=== PATIENT | male | born 1950 | race Caucasian/White ===

== ENCOUNTER 2019-07-04 17:13 | Observation (INO) ==
[2019-07-04] MEDS ORDERED: Isovue-370 500 ML BOTTLE IVP ONE (17:17)
[2019-07-04] MEDS ORDERED: Ondansetron 4 MG/2 ML VIAL IVP ONE (17:18)
--- NOTE | 2019-07-04 17:19 | Emergency Department Note ---
Disposition Clinical Impression: Elevated troponin Chest pain Qualifiers: Chest pain type: unspecified Qualified Code(s): R07.9 - Chest pain, unspecified Back pain Qualifiers: Back pain location: back pain in unspecified location Chronicity: unspecified Back pain laterality: unspecified Qualified Code(s): M54.9 - Dorsalgia, unspecified Disposition: Admitted As Inpatient Time of Disposition: 20:15 General Adult HPI - General Chief complaint: ED Abdominal Pain Stated complaint: back pain/ vomiting Time Seen by Provider: 07/04/19 17:15 Source: patient, EMS Mode of arrival: EMS Limitations: no limitations Nursing Notes Reviewed: Yes Vital Signs Reviewed: Yes - History of Present Illness HPI Narrative: Patient is a 68-year-old male with past medical history including hypertension, hyperlipidemia, pulmonary embolism on Coumadin, presenting with chief complaint of back pain and chest pain that started at 2:30 PM. The patient states he was sitting at the computer when he suddenly developed mid thoracic back pain that is sharp and radiating into his left chest. He states he felt short of breath. He has nausea and has had several episodes of nonbilious nonbloody emesis. He states this feels similar to when he was diagnosed 2 years ago with his pulmonary embolism. He states his compliance with his Coumadin. Patient states symptoms are getting worse so he called EMS to bring him here. Denies history of aneurysms. Denies abdominal pain. - Related Data Home Medications Medication Instructions Recorded Confirmed Albuterol Sulfate [Proair Hfa] 2 puff IH Q6H PRN 08/31/17 08/30/18 Lisinopril [Zestril] 20 mg PO BID 08/31/17 08/30/18 Omeprazole [PriLOSEC] 40 mg PO BID 08/31/17 08/30/18 Pravastatin Sodium [Pravachol] 80 mg PO HS 08/31/17 08/30/18 Subcutaneous Insulin Pump [T:Slim] 133 unit MC AD 08/31/17 08/30/18 Terbinafine HCl [Lamisil] 250 mg PO AD 08/31/17 08/30/18 Fluticasone Propionate Nasal 50 mcg NS DAILY PRN 09/30/17 08/30/18 [Flonase] Warfarin [Coumadin] 2.5 mg PO DAILY 09/30/17 08/30/18 amLODIPine [Norvasc] 5 mg PO DAILY 09/30/17 08/30/18 Fexofenadine/Pseudoephedrine 1 each PO DAILY 02/22/18 08/30/18 [Rosalind-D 24 Hour Tablet] Ranitidine HCl [Heartburn Relief] 150 mg PO BID 02/22/18 08/30/18 Furosemide [Lasix] 40 mg PO DAILY 08/30/18 08/30/18 Ipratropium/Albuterol Neb [Duoneb] 3 ml IH Q6HR PRN 08/30/18 08/30/18 Montelukast [Singulair] 10 mg PO DAILY 08/30/18 08/30/18 Allergies Allergy/AdvReac Type Severity Reaction Status Date / Time meperidine [From Demerol] Allergy Vomiting Verified 02/22/18 11:20 sulfamethoxazole Allergy Hives Verified 02/22/18 11:20 [From Bactrim] trimethoprim [From Bactrim] Allergy Hives Verified 02/22/18 11:20 vilazodone [From Viibryd] Allergy Hives Verified 02/22/18 11:20 acetaminophen [From Percocet] AdvReac See Verified 02/22/18 11:20 Comments oxycodone [From Percocet] AdvReac See Verified 02/22/18 11:20 Comments All systems ED: reviewed and negative except as stated. Review of Systems: As Per HPI Constitutional: Denies: fever, chills Cardiovascular: Reports: chest pain Respiratory: Reports: dyspnea. Denies: cough Gastrointestinal: Reports: nausea, vomiting. Denies: abdominal pain, diarrhea Musculoskeletal: Reports: back pain Neurological: Denies: headache, weakness Past Medical History - Past Medical History Attestation: Yes The following information was validated with the patient. Source: patient Medical history: Reports: diabetes, GERD, hyperlipidemia, hypertension, other Psychiatric history: Reports: no psych history - Social History Smoking Status: Former smoker Smokeless Tobacco Status: No Alcohol use: Reports: none Drug use: Reports: none Physical Exam - General Limitations: no limitations General appearance: alert, in no apparent distress - Head Head exam: atraumatic, normocephalic - Eye Eye exam: Present: normal appearance, EOMI - ENT ENT exam: normal exam, normal oropharynx - Neck Neck exam: Present: normal inspection, trachea midline - Chest Chest inspection: Present: normal inspection, symmetric chest wall rise - Respiratory Respiratory exam: Present: normal lung sounds bilaterally. Absent: respiratory distress, wheezes - Cardiovascular Cardiovascular exam: Present: normal rhythm, tachycardia, other (Bilateral radial pulses and dorsalis pedis pulses are equal and palpable) - Abdominal Exam Abdominal exam: Present: soft, Non-Tender. Absent: distention, pulsatile mass - Extremities Exam Extremities exam: Present: normal inspection, normal capillary refill. Absent: pedal edema, calf tenderness - Neurological Exam Neurological exam: Present: alert, oriented X3. Absent: motor sensory deficit - Expanded Neurological Exam Motor strength - LUE: 5/5 Motor strength - RUE: 5/5 Motor strength - LLE: 5/5 Motor strength - RLE: 5/5 - Psychiatric Psychiatric exam: Present: normal affect, normal mood - Skin Skin exam: Present: warm, diaphoresis Course Vital Signs Temperature 98.9 F 07/04/19 17:15 Pulse Rate 102 07/04/19 17:15 Respiratory Rate 23 07/04/19 17:15 Blood Pressure 187/85 07/04/19 17:15 O2 Sat by Pulse Oximetry 96 07/04/19 17:15 Temperature 98.9 F 07/04/19 17:15 Pulse Rate 86 07/04/19 19:56 Respiratory Rate 22 07/04/19 19:56 Blood Pressure 129/69 07/04/19 19:56 O2 Sat by Pulse Oximetry 95 07/04/19 19:56 Oxygen Delivery Oxygen Delivery Room Air Medical Decision Making - [facility] Narrative Medical decision making narrative: The patient is diaphoretic and tachycardic. He is actively vomiting. He states he has the back pain and chest pain. We will give him Zofran for nausea. We will obtain CTA chest to evaluate for pulmonary embolism. His also evaluate for an or aortic dissection. His pulses are equal bilaterally and he has no abdom inal palpable mass. We will also obtain EKG, BMP, PT INR, troponin as well. Fentanyl and zofran will be given. 20:00 Labs and imaging reviewed. Patient's chest and back pain improved. Nausea resolv ed. CT shows no PE or dissection. Troponin mildly elevated. patient will be admitted for ACS workup. Discussed with Dr. Miles who accepts admission. patient stable at this time. - Medical Records Medical records reviewed: Yes I reviewed the patient's medical records. - Lab Data Lab results reviewed: Yes I reviewed the patient's lab results. Result diagrams: 07/04/19 18:48 07/04/19 18:48 Lab Results 07/04/19 07/04/19 07/04/19 Range/Units 17:37 17:37 17:37 WBC (4.3-11.1) K/mcL RBC (4.19-5.50) M/mcL Hgb (12.9-16.9) g/dL Hct (37.5-50.1) % MCV (83.0-100.0) fL MCH (28.0-33.3) pg MCHC (31.6-35.5) g/dL RDW (11.5-14.5) % Plt Count (140-400) K/mcL MPV (9.4-12.4) fL Immature Gran % (0-4) % Seg Neutrophils % % Lymphocytes % % Monocytes % % Eosinophils % % Basophils % % Neutrophils # (1.6-8.9) K/mcL Lymphocytes # (0.6-4.6) K/mcL Monocytes # (0.0-1.3) K/mcL Eosinophils # (0.0-0.6) K/mcL Basophils # (0.0-0.2) K/mcL PT 25.1 H (9.4-12.1) Seconds INR 2.2 APTT 34.9 (26.0-36.0) Seconds Sodium TNP Potassium TNP Chloride TNP Carbon Dioxide TNP BUN TNP Creatinine TNP Est GFR ( Amer) WOOD PLANER Est GFR (Non-Af Amer) WOOD PLANER BUN/Creatinine Ratio WOOD PLANER Glucose TNP Calculated Osmolality WOOD PLANER Calcium TNP Troponin I 0.04 H* (< 0.04) ng/mL Specimen Rejected Clotted 07/04/19 07/04/19 Range/Units 18:48 18:48 WBC 9.2 (4.3-11.1) K/mcL RBC 4.47 (4.19-5.50) M/mcL Hgb 13.6 (12.9-16.9) g/dL Hct 41.5 (37.5-50.1) % MCV 92.8 (83.0-100.0) fL MCH 30.4 (28.0-33.3) pg MCHC 32.8 (31.6-35.5) g/dL RDW 13.4 (11.5-14.5) % Plt Count 223 (140-400) K/mcL MPV 9.6 (9.4-12.4) fL Immature Gran % 0.6 (0-4) % Seg Neutrophils % 70.6 % Lymphocytes % 15.0 % Monocytes % 12.1 % Eosinophils % 1.4 % Basophils % 0.3 % Neutrophils # 6.5 (1.6-8.9) K/mcL Lymphocytes # 1.4 (0.6-4.6) K/mcL Monocytes # 1.1 (0.0-1.3) K/mcL Eosinophils # 0.1 (0.0-0.6) K/mcL Basophils # 0.0 (0.0-0.2) K/mcL PT (9.4-12.1) Seconds INR APTT (26.0-36.0) Seconds Sodium 141 Potassium 4.0 Chloride 110 H Carbon Dioxide 25 BUN 20 Creatinine 1.17 Est GFR ( Amer) > 60 Est GFR (Non-Af Amer) > 60 BUN/Creatinine Ratio 17 Glucose 106 H Calculated Osmolality 295 Calcium 9.0 Troponin I (< 0.04) ng/mL Specimen Rejected - Radiology Data Radiology results reviewed: Yes I reviewed the patient's radiology results. Chest CTA 07/04/19 17:17 IMPRESSION: No evidence of pulmonary embolism or acute pulmonary abnormality. D/ / Brianne Jordan MD / Brianne Jordan MD Interpreting Provider: Brianne Jordan MD - EKG Data EKG #1 EKG attestation: Yes I reviewed and interpreted this EKG. EKG results narrative: EKG obtained at 1716 shows sinus rhythm with heart rate 94, OH interval 233, QRS duration 107, QTC 458, no ST elevation, no ST depression, left axis deviation, compared to old EKG on 08/31/2017 which shows no acute ischemic changes.
--- NOTE | 2019-07-04 17:51 | Emergency Department Note ---
Disposition Clinical Impression: Chest pain Qualifiers: Chest pain type: unspecified Qualified Code(s): R07.9 - Chest pain, unspecified Disposition: Still a Patient Forms: ED Satisfaction Letter, Work/School Release Time of Disposition: 17:51 General Adult HPI - General Chief complaint: ED Abdominal Pain Stated complaint: back pain/ vomiting Time Seen by Provider: 07/04/19 17:15 Source: patient, EMS Mode of arrival: EMS Limitations: no limitations Nursing Notes Reviewed: Yes Vital Signs Reviewed: Yes - History of Present Illness HPI Narrative: Attestation note: Patient was seen with the emergency medicine resident/nurse practitioner/physician fire assistant/transitional resident/medical student: Dr. MARY JUNIOR. I was present for the significant portions of the performance and interpretation of procedures and EKGs. I have personally performed a face to face evaluation on this patient. I have reviewed and agree with history and physical examination patient management and disposition. BRIEFLY: 60-year-old male history of pulmonary embolism by EMS for chest pain in his back IN the computer he says this feels like his prior pulmonary embolism. He is actively vomiting. Patient is neurologically nonfocal. He is on Coumadin. Patient will get a CT scan to gram of the chest to check for PE and check his aorta. For possible aortic dissection. She was neurovascularly intact EKG shows no acute ischemic changes. Disposition pending providing 45 minutes critical care service this patient Pain Scale: 5 - Related Data Home Medications Medication Instructions Recorded Confirmed Albuterol Sulfate [Proair Hfa] 2 puff IH Q6H PRN 08/31/17 08/30/18 Lisinopril [Zestril] 20 mg PO BID 08/31/17 08/30/18 Omeprazole [PriLOSEC] 40 mg PO BID 08/31/17 08/30/18 Pravastatin Sodium [Pravachol] 80 mg PO HS 08/31/17 08/30/18 Subcutaneous Insulin Pump [T:Slim] 133 unit MC AD 08/31/17 08/30/18 Terbinafine HCl [Lamisil] 250 mg PO AD 08/31/17 08/30/18 Fluticasone Propionate Nasal 50 mcg NS DAILY PRN 09/30/17 08/30/18 [Flonase] Warfarin [Coumadin] 2.5 mg PO DAILY 09/30/17 08/30/18 amLODIPine [Norvasc] 5 mg PO DAILY 09/30/17 08/30/18 Fexofenadine/Pseudoephedrine 1 each PO DAILY 02/22/18 08/30/18 [Rosalind-D 24 Hour Tablet] Ranitidine HCl [Heartburn Relief] 150 mg PO BID 02/22/18 08/30/18 Furosemide [Lasix] 40 mg PO DAILY 08/30/18 08/30/18 Ipratropium/Albuterol Neb [Duoneb] 3 ml IH Q6HR PRN 08/30/18 08/30/18 Montelukast [Singulair] 10 mg PO DAILY 08/30/18 08/30/18 Allergies Allergy/AdvReac Type Severity Reaction Status Date / Time meperidine [From Demerol] Allergy Vomiting Verified 02/22/18 11:20 sulfamethoxazole Allergy Hives Verified 02/22/18 11:20 [From Bactrim] trimethoprim [From Bactrim] Allergy Hives Verified 02/22/18 11:20 vilazodone [From Viibryd] Allergy Hives Verified 02/22/18 11:20 acetaminophen [From Percocet] AdvReac See Verified 02/22/18 11:20 Comments oxycodone [From Percocet] AdvReac See Verified 02/22/18 11:20 Comments Past Medical History - Past Medical History Medical history: Reports: diabetes, GERD, hyperlipidemia, hypertension, other Psychiatric history: Reports: no psych history - Social History Smoking Status: Former smoker Smokeless Tobacco Status: No Alcohol use: Reports: none Drug use: Reports: none Physical Exam - General Limitations: no limitations General appearance: alert Course Vital Signs Temperature 98.9 F 07/04/19 17:15 Pulse Rate 102 07/04/19 17:15 Respiratory Rate 07/04/19 17:15 Blood Pressure 187/85 07/04/19 17:15 O2 Sat by Pulse Oximetry 96 07/04/19 17:15 Temperature 98.9 F 07/04/19 17:15 Pulse Rate 102 07/04/19 17:15 Respiratory Rate 07/04/19 17:15 Blood Pressure 187/85 07/04/19 17:15 O2 Sat by Pulse Oximetry 100 07/04/19 17:44 Oxygen Delivery Oxygen Delivery Room Air
[2019-07-04 17:59] LABS: INR 2.2; Prothrombin Time 25.1 Seconds (9.4-12.1)
[2019-07-04 18:02] LABS: Activated Partial Thrombo Time 34.9 Seconds (26.0-36.0)
[2019-07-04 18:22] LABS: Troponin I 0.04 ng/mL (< 0.04)
[2019-07-04] MEDS ORDERED: *HR* FentaNYL (PF) 100 MCG/2 ML VIAL IVP ONE (18:27)
[2019-07-04 19:07] LABS: Basophils % 0.3 %; Eosinophils # 0.1 K/mcL (0.0-0.6); Eosinophils % 1.4 %; Hematocrit 41.5 % (37.5-50.1); Hemoglobin 13.6 g/dL (12.9-16.9); Immature Granulocytes % 0.6 % (0-4); Lymphocytes # 1.4 K/mcL (0.6-4.6); Mean Corpuscular HGB Conc 32.8 g/dL (31.6-35.5); Mean Corpuscular Hemoglobin 30.4 pg (28.0-33.3); Mean Corpuscular Volume 92.8 fL (83.0-100.0); Mean Platelet Volume 9.6 fL (9.4-12.4); Monocytes # 1.1 K/mcL (0.0-1.3); Monocytes % 12.1 %; Neutrophils # 6.5 K/mcL (1.6-8.9); Platelet Count 223 K/mcL (140-400); Red Blood Count 4.47 M/mcL (4.19-5.50); Red Cell Distribution Width 13.4 % (11.5-14.5); Segmented Neutrophils % 70.6 %; White Blood Count 9.2 K/mcL (4.3-11.1)
[2019-07-04 19:15] LABS: BUN/Creatinine Ratio 17 (6-26); Blood Urea Nitrogen 20 mg/dL (8-23); Carbon Dioxide 25 mEq/L (23-29); Chloride 110 mEq/L (98-107); Glucose 106 mg/dL (70-105); Osmolality,Calculated 295 (280-300); Sodium 141 mEq/L (136-145); eGFR For African Americans > 60 (> 60); eGFR For Non-African Americans > 60 (> 60)
[2019-07-05] MEDS ORDERED: Naloxone 0.4 MG/ML INJ IVP PRN (01:25)
[2019-07-05] MEDS ORDERED: Dextrose Gel 15 GM/37.5 ML TUBE PO PRN ×2 (01:28)
[2019-07-05] MEDS ORDERED: *HR* Dextrose 50 % in Water (Syg) 50 ML SYRINGE IVP PRN (01:28)
[2019-07-05] MEDS ORDERED: D5% in Water 1,000 ML IVC PRN (01:28)
[2019-07-05] MEDS ORDERED: *HR* FentaNYL (PF) 100 MCG/2 ML VIAL IVP PRN (01:29)
--- NOTE | 2019-07-05 01:33 | Internal Med History&Physical ---
Date of Encounter: 07/04/19 Time of Encounter: 23:30 Internal Medicine - H&P: HPI Chief complaint: Chest pain/back pain Admitted From: Home Plans for Post Hospital Care: Home History of present illness: Mr. Parry is a 68 year old male with past medical history significant for hypertension, hyperlipidemia, PE, DVT, diabetes, GERD, sleep apnea, and retinopathy who presents for complaints of sudden onset stabbing mid thoracic back pain that later progressed to left-sided chest pressure. Rated pain at 8/10 when at its worst. Pain was associated with diaphoresis, nausea, vomiting. Reports taking aspirin at home without improvement, then came to ER where he received Fentanyl and Zofran which improved his symptoms. Reports his pain is almost identical to when he experienced an extensive PE in August 2017 which also produced right heart strain and was transferred to [facility] and was treated there including catheter directed thrombolysis. He reports being compliant with Coumadin since. ER obtained a CTA of the chest which showed no evidence of pulmonary embolism or acute pulmonary abnormality. ER reported EKG as sinus rhythm with no ST elevation, no ST depression, left axis deviation, and no acute ischemic changes when compared to EKG from August 2017. Patient continues to report improvement in his symptoms at time of my examination. Currently denies any headache, shortness of breath, abdominal pain, nausea, bowel or bladder changes. Patient had an echocardiogram completed in August 2018 showing a 60% EF. Denies any previous cardiac stress testing. Reports using a continuous blood glucose monitoring system and insulin pump and his blood sugars have been averaging in the 100s. Follows regularly with his PCP, Railroad Firer, Chair Trimmer, and Ordnance Truck Installation Supervisor. Past Med Surg Social Fam HX - Past Medical History Medical history: DVT, diabetes, GERD, hyperlipidemia, hypertension, pulmonary embolus, other Additional medical history: AAA. Sleep apnea Psychiatric history: no psych history - Past Surgical History Surgical History: appendectomy, orthopedic, other, vasectomy Additional surgical history: Right shoulder surgery. Left elbow surgery - Social History Smoking Status: Former smoker Smokeless Tobacco Status: No Alcohol use: none Drug use: none - Family History Father Hx Family Cardiac Disorders: Yes Mother Hx Family Endocrine Disorder: Yes Internal Medicine - H&P: Meds Lisinopril [Zestril] 20 mg PO BID 08/31/17 [History] Omeprazole [PriLOSEC] 40 mg PO BID 08/31/17 [History] Pravastatin Sodium [Pravachol] 80 mg PO HS 08/31/17 [History] Subcutaneous Insulin Pump [T:Slim] 133 unit MC AD 08/31/17 [History] Terbinafine HCl [Lamisil] 250 mg PO AD 08/31/17 [History] Fluticasone Propionate Nasal [Flonase] 50 mcg NS DAILY PRN 09/30/17 [History] Warfarin [Coumadin] 2.5 mg PO DAILY 09/30/17 [History] amLODIPine [Norvasc] 5 mg PO DAILY 09/30/17 [History] Fexofenadine/Pseudoephedrine [Rosalind-D 24 Hour Tablet] 1 each PO DAILY 02/22/18 [History] Allergy/AdvReac Type Severity Reaction Status Date / Time meperidine [From Demerol] Allergy Vomiting Verified 02/22/18 11:20 sulfamethoxazole Allergy Hives Verified 02/22/18 11:20 [From Bactrim] trimethoprim [From Bactrim] Allergy Hives Verified 02/22/18 11:20 vilazodone [From Viibryd] Allergy Hives Verified 02/22/18 11:20 acetaminophen [From Percocet] AdvReac See Verified 02/22/18 11:20 Comments oxycodone [From Percocet] AdvReac See Verified 02/22/18 11:20 Comments All Systems PM: A 10-system review of systems was performed and is negative for pertinent findings except as documented above in the HPI. - Constitutional Vitals: Temp Pulse Resp BP Pulse Ox 98.7 F 87 17 156/80 94 07/04/19 21:25 07/04/19 21:25 07/04/19 21:25 07/04/19 21:30 07/04/19 21:25 Exam: General: Alert and oriented. Skin:Normal color, no rash, no lesions. HEENT:Pupils equal, round and reactive. Cardiovascular:Heart sounds distant, no rubs, murmurs or gallops. No JVD. Pulse regular. Lungs:Breath sounds decreased, no wheezes or crackles. Abdomen:Soft, non-tender, no rigidity. Extremities:No deformity, tenderness, joint swelling or clubbing. 1+ pitting edema noted to bilateral lower extremities, reports at baseline. Neurological:Normal cognition and motor skills. Pulses:Carotid and radial pulses normal +2. Rest of the physical exam is non contributory. Internal Med - H&P Results - Labs CBC & Chem 7: 07/04/19 18:48 07/04/19 18:48 Labs: Short CBC 07/04/19 Range/Units 18:48 WBC 9.2 (4.3-11.1) K/mcL Hgb 13.6 (12.9-16.9) g/dL Hct 41.5 (37.5-50.1) % Plt Count 223 (140-400) K/mcL Neutrophils # 6.5 (1.6-8.9) K/mcL BMP 07/04/19 07/04/19 17:37 18:48 Sodium TNP 141 Potassium TNP 4.0 Chloride TNP 110 H Carbon Dioxide TNP 25 BUN TNP 20 Creatinine TNP 1.17 Glucose TNP 106 H Calcium TNP 9.0 Cardiac Enzymes 07/04/19 07/04/19 Range/Units 17:37 23:17 Troponin I 0.04 H* 0.03 (< 0.04) ng/mL - Impressions ITS Impressions Chest CTA 07/04/19 17:17 IMPRESSION: No evidence of pulmonary embolism or acute pulmonary abnormality. D/ / Brianne Jordan MD / Brianne Jordan MD Interpreting Provider: Brianne Jordan MD - Assessment and Plan (1) Chest pain Current Visit: Yes Status: Acute Assessment and plan: Presented for sudden onset stabbing mid thoracic back pain that later progressed to left-sided chest pressure. Pain nearly resolved after aspirin and fentanyl. ER obtained CTA of the chest which showed no evidence of pulmonary embolism or acute pulmonary abnormality. Continuous cardiac monitoring. Initial troponin in ER elevated at 0.04, serial troponins ordered. Echocardiogram ordered. Qualifiers: Chest pain type: unspecified Qualified Code(s): R07.9 - Chest pain, unspecified (2) Back pain Current Visit: Yes Status: Acute Assessment and plan: Presented for sudden onset stabbing mid thoracic back pain that later progressed to left-sided chest pressure. Pain nearly resolved after aspirin and fentanyl. Plan as stated above. Qualifiers: Back pain location: back pain in unspecified location Chronicity: unspecified Back pain laterality: unspecified Qualified Code(s): M54.9 - Dorsalgia, unspecified (3) Elevated troponin Current Visit: Yes Status: Acute Assessment and plan: Initial troponin in ER elevated at 0.04, serial troponins ordered. Plan as stated above. (4) History of abdominal aortic aneurysm (AAA) Current Visit: Yes Status: Chronic Assessment and plan: History of AAA, most recent ultrasound in February 2017 showing small infrarenal abdominal aortic aneurysm measuring 2.6 x 3.1cm in the AP and transverse dimensions respectively recommending repeat in 3 years. Due to sudden onset of back pain of unclear etiology will repeat ultrasound to ensure no changes. (5) Sleep apnea Current Visit: Yes Status: Chronic Assessment and plan: Continue CPAP at night. Qualifiers: Sleep apnea type: unspecified type Qualified Code(s): G47.30 - Sleep apnea, unspecified (6) History of pulmonary embolism Current Visit: Yes Status: Resolved Assessment and plan: History of extensive PE in August 2017 which also produced right heart strain and was transferred to [facility] and treated there including catheter directed thrombolysis. Continue coumadin pharmacy to dose. (7) Diabetes mellitus Current Visit: Yes Status: Chronic Assessment and plan: Continous blood glucose monitoring system and insulin pump, continue same. Verify with accuchecks q6 hours. Qualifiers: Diabetes mellitus type: type 1 Qualified Code(s): E10.9 - Type 1 diabetes mellitus without complications (8) Hypertension Current Visit: Yes Status: Chronic Assessment and plan: Continue home medications once verified. Qualifiers: Hypertension type: unspecified Qualified Code(s): I10 - Essential (primary) hypertension - Time Spent With Patient Total time spent is greater than 50% in coordination of care (as documented) at patient's floor/unit and/or counseling patient:
[2019-07-05 06:26] LABS: Basophils % 0.4 %; Eosinophils # 0.2 K/mcL (0.0-0.6); Eosinophils % 2.1 %; Hematocrit 38.1 % (37.5-50.1); Hemoglobin 12.8 g/dL (12.9-16.9); Immature Granulocytes % 0.3 % (0-4); Lymphocytes # 2.2 K/mcL (0.6-4.6); Lymphocytes % 20.7 %; Mean Corpuscular HGB Conc 33.6 g/dL (31.6-35.5); Mean Corpuscular Hemoglobin 30.6 pg (28.0-33.3); Mean Corpuscular Volume 91.1 fL (83.0-100.0); Mean Platelet Volume 10.1 fL (9.4-12.4); Monocytes # 1.5 K/mcL (0.0-1.3); Monocytes % 13.9 %; Neutrophils # 6.6 K/mcL (1.6-8.9); Platelet Count 204 K/mcL (140-400); Red Blood Count 4.18 M/mcL (4.19-5.50); Red Cell Distribution Width 13.2 % (11.5-14.5); Segmented Neutrophils % 62.6 %; White Blood Count 10.6 K/mcL (4.3-11.1)
[2019-07-05 06:34] LABS: INR 2.6
[2019-07-05 06:42] LABS: BUN/Creatinine Ratio 17 (6-26); Blood Urea Nitrogen 20 mg/dL (8-23); Calcium 8.6 mg/dL (8.6-10.3); Carbon Dioxide 28 mEq/L (23-29); Chloride 107 mEq/L (98-107); Glucose 96 mg/dL (70-105); Osmolality,Calculated 296 (280-300); Potassium 3.7 mEq/L (3.5-5.1); Sodium 142 mEq/L (136-145); eGFR For African Americans > 60 (> 60); eGFR For Non-African Americans 60 (> 60)
[2019-07-05] MEDS ORDERED: Regadenoson 0.4 MG/5 ML SYRINGE IVP ONE (10:51)
--- NOTE | 2019-07-05 13:14 | Internal Med Progress Note ---
Hospitalist Progress Note - Encounter Date of Encounter: 07/05/19 Time of Encounter: 10:00 - Subjective Interval History: Mr. Parry is a 68 year old male with past medical history significant for hypertension, hyperlipidemia, PE, DVT, diabetes, GERD, sleep apnea, and retinopathy who presents for complaints of sudden onset stabbing mid thoracic back pain that later progressed to left-sided chest pressure. Rated pain at 8/10 when at its worst. Pain was associated with diaphoresis, nausea, vomiting. Reports taking aspirin at home without improvement, then came to ER where he received Fentanyl and Zofran which improved his symptoms. ER obtained a CTA of the chest which showed no evidence of pulmonary embolism or acute pulmonary abnormality. He was admitted in the hospital and placed him on surveillance monitor. His initial troponin slightly elevated at 0.04, however follow-up troponins were negative. Patient stated he had another episode of chest pain this morning, which lasted for few minutes. - Exam Vitals: Temp Pulse Resp BP Pulse Ox 98.1 F 64 16 114/71 93 07/05/19 07:22 07/05/19 07:22 07/05/19 07:22 07/05/19 07:22 07/05/19 07:22 Exam: Gen: Alert, awake, Oriented to time,place and person Chest: Diminished breath sounds B/L, No wheezing, No crackles, No rales Heart: S1S2+ RRR No murmurs Abd: Soft, NT, BS +, No organomegaly Ext: No edema, pulses are palpable, No calf tenderness Neuro : No acute focal neuro deficits noticed Skin: No rash. - Assessment and Plan (1) Chest pain Current Visit: Yes Status: Acute Assessment and Plan: Troponin were WNL No acute ischemic changes on EKG cont ASA, Nitro PRN, Cont Lisinopril, Statin and Norvasc ordered nuclear stress test since he is high risk for ACS He does need 2 days stress test due to his high BMI (2) Back pain Current Visit: Yes Status: Acute Assessment and Plan: Presented for sudden onset stabbing mid thoracic back pain that later progressed to left-sided chest pressure. r/o PE and disection His aortic US showed Mild distal abdominal aortic aneurysm noted on the prior studies is no longer apparent. (3) Elevated troponin Current Visit: Yes Status: Acute Assessment and Plan: Initial troponin in ER elevated at 0.04, however f/u serial troponins were negative will f/u on stress test (4) Hypertension Current Visit: Yes Status: Chronic Assessment and Plan: Stable blood pressure continue home medications (5) Diabetes mellitus Current Visit: Yes Status: Chronic Assessment and Plan: ADA diet on ISS (6) Sleep apnea Current Visit: Yes Status: Chronic Assessment and Plan: Continue CPAP at night. (7) History of pulmonary embolism Current Visit: Yes Status: Resolved Assessment and Plan: History of extensive PE in August 2017 Cont Coumadin Pahrmacy to dose Coumadin (8) History of abdominal aortic aneurysm (AAA) Current Visit: Yes Status: Chronic Assessment and Plan: History of AAA, most recent ultrasound in February 2017 showing small infrarenal abdominal aortic aneurysm measuring 2.6 x 3.1cm in the AP and transverse dimensions respectively recommending repeat in 3 years. repeat US of Aorta showed : Mild distal abdominal aortic aneurysm noted on the prior studies is no longer apparent. - Time Spent with Patient Total time spent is greater than 50% in coordination of care (as documented) at patient's floor/unit and/or counseling patient: Internal Medicine: Result - Labs CBC & Chem 7: 07/05/19 05:23 07/05/19 05:23 Labs: Short CBC 07/04/19 07/05/19 Range/Units 18:48 05:23 WBC 9.2 10.6 (4.3-11.1) K/mcL Hgb 13.6 12.8 L (12.9-16.9) g/dL Hct 41.5 38.1 (37.5-50.1) % Plt Count 223 204 (140-400) K/mcL Neutrophils # 6.5 6.6 (1.6-8.9) K/mcL BMP 07/04/19 07/04/19 07/05/19 17:37 18:48 05:23 Sodium TNP 141 142 Potassium TNP 4.0 3.7 Chloride TNP 110 H 107 Carbon Dioxide TNP 25 28 BUN TNP 20 20 Creatinine TNP 1.17 1.21 Glucose TNP 106 H 96 Calcium TNP 9.0 8.6 Cardiac Enzymes 07/04/19 07/04/19 07/05/19 Range/Units 17:37 23:17 05:23 Troponin I 0.04 H* 0.03 0.03 (< 0.04) ng/mL - ABG Interpretation ABG results: PT/INR, D-dimer PT 30.0 Seconds (9.4-12.1) H 07/05/19 05:23 - Impressions Impressions Chest CTA 07/04/19 17:17 IMPRESSION: No evidence of pulmonary embolism or acute pulmonary abnormality. D/ / Brianne Jordan MD / Brianne Jordan MD Interpreting Provider: Brianne Jordan MD Aorta Ultrasound 07/05/19 09:00 IMPRESSION: Mild distal abdominal aortic aneurysm noted on the prior studies is no longer apparent. D/ / Sandeep Joel MD / Sandeep Joel MD Interpreting Provider: Sandeep Joel MD Consult Discharge Plan - Plan Referrals: Belle Rivas INFORMATION SYSTEMS COORDINATOR [Primary Care Provider] - 07/12/19 10:00 am (1) Chest pain Qualifiers: Chest pain type: unspecified Qualified Code(s): R07.9 - Chest pain, unspecified (2) Back pain Qualifiers: Back pain location: back pain in unspecified location Chronicity: unspecified Back pain laterality: unspecified Qualified Code(s): M54.9 - Dorsalgia, unspecified (4) Hypertension Qualifiers: Hypertension type: unspecified Qualified Code(s): I10 - Essential (primary) hypertension (5) Diabetes mellitus Qualifiers: Diabetes mellitus type: type 1 Qualified Code(s): E10.9 - Type 1 diabetes mellitus without complications (6) Sleep apnea Qualifiers: Sleep apnea type: unspecified type Qualified Code(s): G47.30 - Sleep apnea, unspecified
[2019-07-05] MEDS ORDERED: *HR* Warfarin 2.5 MG TABLET PO ONE (18:00)
[2019-07-05] MEDS ORDERED: Warfarin perPT PO PRN (18:00)
--- NOTE | 2019-07-05 19:41 | Electrocardiograph Report ---
[address] [address] Test Date: 2019-07-04 Pat Name: Junior Parry Department: [id number] Room: 3B16 Gender: M Safety Council Director: : [id number] Requested By: Gael Vega Order Number: [id number] Reading MD: Angélica Sarah Measurements Intervals [place] Rate: 94 P: 0 RI: 233 QRS: -38 QRSD: 107 T: 58 QT: 366 QTc: 458 Interpretive Statements Sinus rhythm with first degree AVB Left axis deviation Low voltage, precordial leads Abnormal R-wave progression, late transition Electronically Signed On 07-05-2019 19:40:13 EDT by Angélica Sarah
[2019-07-06] MEDS ORDERED: Insulin LISPRO 300 UNITS/3 ML VIAL SQ SCH (00:50)
[2019-07-06 04:55] LABS: INR 2.1
[2019-07-06] MEDS: Insulin LISPRO 300 UNITS/3 ML VIAL SQ SCH ×2 (08:32→13:16)
[2019-07-06 10:53] VITALS: BP 126/73
--- NOTE | 2019-07-06 14:22 | Discharge Summary ---
- NOTES TO OUTPATIENT PROVIDER Notes to Outpatient Provider: f/u with PCP in one week. f/u with Cardiology in one week. Please start taking Aspirin 81mg PO Daily. Date of Encounter: 07/06/19 Time of Encounter: 14:13 - Discharge Diagnosis (1) Chest pain Priority: Primary Status: Acute Qualifiers: Chest pain type: unspecified Qualified Code(s): R07.9 - Chest pain, unspecified (2) Back pain Priority: Secondary Status: Acute Qualifiers: Back pain location: back pain in unspecified location Chronicity: unspecified Back pain laterality: unspecified Qualified Code(s): M54.9 - Dorsalgia, unspecified (3) Elevated troponin Priority: Secondary Status: Acute (4) Hypertension Priority: Secondary Status: Chronic Qualifiers: Hypertension type: essential hypertension Qualified Code(s): I10 - Essential (primary) hypertension (5) Diabetes mellitus Priority: Secondary Status: Chronic Qualifiers: Diabetes mellitus type: type 1 Qualified Code(s): E10.9 - Type 1 diabetes mellitus without complications (6) Sleep apnea Priority: Secondary Status: Chronic Qualifiers: Sleep apnea type: unspecified type Qualified Code(s): G47.30 - Sleep apnea, unspecified (7) History of pulmonary embolism Priority: Secondary Status: Resolved (8) History of abdominal aortic aneurysm (AAA) Priority: Secondary Status: Chronic Hospital course: Mr. Parry is a 68 year old male with past medical history significant for hypertension, hyperlipidemia, PE, DVT, diabetes, GERD, sleep apnea, and retinopathy who presents for complaints of sudden onset stabbing mid thoracic back pain that later progressed to left-sided chest pressure. Rated pain at 8/10 when at its worst. Pain was associated with diaphoresis, nausea, vomiting. Reports taking aspirin at home without improvement, then came to ER where he received Fentanyl and Zofran which improved his symptoms. ER obtained a CTA of the chest which showed no evidence of pulmonary embolism or acute pulmonary abnormality. 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 His initial troponin slightly elevated at 0.04, however follow-up troponins were negative. His EKG did not show any acute ischemic changes. EKG showed some poor R wave progression. His aortic US showed Mild distal abdominal aortic aneurysm noted on the prior studies is no longer apparent. Since he is high risk for ACS he did go for nuclear stress test. His nuclear stress test showed - No definite ischemia on myocardial perfusion imaging. There is a small sized fixed perfusion defect which is mild in intensity in the mid- and basal inferolateral segments suggestive of prior infarct versus artifact. He denied any more CP. So recommended him to start taking Aspirin along with his statin and f/u with Cardiology as an out ot. Talked to Cardiology Dr. Diggs, who suggested he may get benefit with CT of Heart, so recommended the to f/u with him as an out pt. - Time Spent with Patient Total time spent providing and/or coordinating discharge services: - Discharge Medications Prescriptions: New Aspirin Enteric Coated [Aspirin EC] 81 mg PO DAILY #30 tablet. Continued Omeprazole [PriLOSEC] 40 mg PO BID Terbinafine HCl [Lamisil] 250 mg PO AD Subcutaneous Insulin Pump [T:Slim] 133 unit MC AD Pravastatin Sodium [Pravachol] 80 mg PO HS Lisinopril [Zestril] 20 mg PO BID amLODIPine [Norvasc] 5 mg PO DAILY Fluticasone Propionate Nasal [Flonase] 2 spr NS DAILY PRN PRN Reason: Allergy Symptoms Warfarin [Coumadin] 2.5 mg PO SUMOTUWETHSA Fexofenadine/Pseudoephedrine [Rosalind-D 24 Hour Tablet] 1 tab PO DAILY Warfarin [Coumadin] 1.25 mg PO FR Montelukast [Singulair] 10 mg PO HS Home Medications: Lisinopril [Zestril] 20 mg PO BID 08/31/17 [History] Omeprazole [PriLOSEC] 40 mg PO BID 08/31/17 [History] Pravastatin Sodium [Pravachol] 80 mg PO HS 08/31/17 [History] Subcutaneous Insulin Pump [T:Slim] 133 unit MC AD 08/31/17 [History] Terbinafine HCl [Lamisil] 250 mg PO AD 08/31/17 [History] Fluticasone Propionate Nasal [Flonase] 2 spr NS DAILY PRN 09/30/17 [History] Warfarin [Coumadin] 2.5 mg PO SUMOTUWETHSA 09/30/17 [History] amLODIPine [Norvasc] 5 mg PO DAILY 09/30/17 [History] Fexofenadine/Pseudoephedrine [Rosalind-D 24 Hour Tablet] 1 tab PO DAILY 02/22/18 [History] Montelukast [Singulair] 10 mg PO HS 07/05/19 [History] Warfarin [Coumadin] 1.25 mg PO FR 07/05/19 [History] Aspirin Enteric Coated [Aspirin EC] 81 mg PO DAILY #30 tablet. 07/06/19 [Rx] Allergies/Adverse Reactions: Allergy/AdvReac Type Severity Reaction Status Date / Time sulfamethoxazole Allergy Hives Verified 07/05/19 13:20 [From Bactrim] trimethoprim [From Bactrim] Allergy Hives Verified 07/05/19 13:20 vilazodone [From Viibryd] Allergy Hives Verified 07/05/19 13:20 acetaminophen [From Percocet] AdvReac See Verified 07/05/19 13:20 Comments meperidine [From Demerol] AdvReac Vomiting Verified 07/05/19 13:20 oxycodone [From Percocet] AdvReac See Verified 07/05/19 13:20 Comments Date of admission: 07/04/19 20:13 Primary care physician: Belle Rivas CNP - Constitutional Vitals: Temp Pulse Resp BP Pulse Ox 98.2 F 74 16 126/73 94 07/06/19 10:52 07/06/19 10:52 07/06/19 10:52 07/06/19 10:52 07/06/19 10:52 General appearance: Present: cooperative, A&O X 3, no acute distress, answers questions appropriately Exam: Gen: Alert, awake, Oriented to time,place and person Chest: Diminished breath sounds B/L, No wheezing, No crackles, No rales Heart: S1S2+ RRR No murmurs Abd: Soft, NT, BS +, No organomegaly Ext: No edema, pulses are palpable, No calf tenderness Neuro : No acute focal neuro deficits noticed Skin: No rash. - Patient Status Disposition: Home, Self-Care Condition: Good Overall status at discharge: patient is back to baseline - Discharge Instructions Follow Up With: Belle Rivas CNP [Primary Care Provider] - 07/12/19 10:00 am Isaiah Diggs MD [Non-Partnered Physician] - - Diet and Activity Activity: increase activity as tolerated Diet: low salt diet
[2019-07-06] MEDS ORDERED: *HR* Warfarin 2.5 MG TABLET PO ONE (18:00)
== END 2019-07-06 15:28 | disposition home or self-care (01) ==
LOC: EMEROOARM 17:13 → 3BNU 17:13 → SUATTDRO 20:13 → 3BNU 21:07
PROVIDERS: ADMIT Pediatrics; ATTEND Family Medicine

== ENCOUNTER 2020-09-24 08:44 | Inpatient (IN) ==
[2020-09-24] MEDS ORDERED: Ondansetron 4 MG/2 ML VIAL IVP ONE (08:51)
[2020-09-24] MEDS ORDERED: 0.9 % Sodium Chloride 1,000 ML IVC ONE (08:51)
[2020-09-24] MEDS ORDERED: Isovue-370 500 ML BOTTLE IVP ONE (08:51)
[2020-09-24 09:32] LABS: Basophils % 0.3 %; Eosinophils % 0.2 %; Hematocrit 46.3 % (37.5-50.1); Hemoglobin 15.4 g/dL (12.9-16.9); Immature Granulocytes % 0.3 % (0-4); Lymphocytes # 1.2 K/mcL (0.6-4.6); Lymphocytes % 18.5 %; Mean Corpuscular HGB Conc 33.3 g/dL (31.6-35.5); Mean Corpuscular Hemoglobin 30.1 pg (28.0-33.3); Mean Corpuscular Volume 90.6 fL (83.0-100.0); Mean Platelet Volume 9.5 fL (9.4-12.4); Monocytes # 0.8 K/mcL (0.0-1.3); Monocytes % 13.2 %; Neutrophils # 4.2 K/mcL (1.6-8.9); Platelet Count 175 K/mcL (140-400); Red Blood Count 5.11 M/mcL (4.19-5.50); Red Cell Distribution Width 13.6 % (11.5-14.5); Segmented Neutrophils % 67.5 %; White Blood Count 6.3 K/mcL (4.3-11.1)
[2020-09-24 09:38] LABS: VBG HCO3 25 mEq/L (21-27); VBG PCO2 44 mmHg (41-51); VBG PH 7.36 pH Units (7.32-7.42); VBG PO2 34 mmHg (25-50)
[2020-09-24 10:04] LABS: Alanine Aminotransferase 42 Units/L (7-52); Albumin 3.6 g/dL (3.5-5.7); Albumin/Globulin Ratio 1.3 (1.1-2.2); Alkaline Phosphatase 80 Units/L (34-104); Aspartate Amino Transferase 50 Units/L (13-39); BUN/Creatinine Ratio 15 (6-26); Bilirubin,Direct 0.2 mg/dL (0.0-0.2); Bilirubin,Indirect 0.4 mg/dL (0.0-1.0); Bilirubin,Total 0.6 mg/dL (0.3-1.0); Blood Urea Nitrogen 19 mg/dL (8-23); Calcium 8.1 mg/dL (8.6-10.3); Carbon Dioxide 24 mEq/L (23-29); Chloride 106 mEq/L (98-107); Globulin 2.8 g/dL (2.4-3.5); Glucose 168 mg/dL (70-105); Osmolality,Calculated 292 (280-300); Potassium 3.8 mEq/L (3.5-5.1); Sodium 138 mEq/L (136-145); Total Protein 6.4 g/dL (6.4-8.9); eGFR For African Americans > 60 (> 60); eGFR For Non-African Americans 58 (> 60)
[2020-09-24 11:09] LABS: Bilirubin,Urine Negative (Negative); Blood,Urine Trace (Negative); Clarity,Urine Clear (Clear); Color,Urine Yellow (Yellow); Glucose,Urine (UA) 70 mg/dL (Normal); Hyaline Casts,Urine Few per lpf (None Seen); Ketones,Urine Negative (Negative); Leukocyte Esterase,Urine Negative (Negative); Mucus,Urine Few per lpf (None-Few); Nitrite,Urine Negative (Negative); Protein,Urine 70 mg/dL (Neg-Trace); Specific Gravity,Urine > 1.030 (1.010-1.025); Squamous Epithelial Cell,Urine Few per hpf (None-Few); Urobilinogen,Urine Normal (Normal)
[2020-09-24] MEDS ORDERED: Acetaminophen 325 MG TABLET PO PRN (12:13)
[2020-09-24] MEDS ORDERED: *HR* Dextrose 50 % in Water (Vial) 50 ML VIAL IVP PRN (12:14)
[2020-09-24] MEDS ORDERED: D5% in Water 1,000 ML IVC PRN (12:14)
[2020-09-24] MEDS ORDERED: Dextrose Gel 15 GM/37.5 ML TUBE PO PRN ×2 (12:14)
[2020-09-24] MEDS ORDERED: D5% in 0.45% NACL 1,000 ML IVC SCH (12:15)
[2020-09-24 12:46] LABS: INR 3.5; Prothrombin Time 38.7 Seconds (9.4-12.1)
[2020-09-24] MEDS: Ondansetron 4 MG/2 ML VIAL IVP PRN (14:19)
[2020-09-24] MEDS: Insulin LISPRO 300 UNITS/3 ML VIAL SQ SCH ×2 (18:58→21:54)
[2020-09-24] MEDS: Melatonin 3 MG TABLET PO PRN (22:51)
[2020-09-25 04:48] LABS: Hematocrit 42.6 % (37.5-50.1); Mean Corpuscular HGB Conc 32.4 g/dL (31.6-35.5); Mean Corpuscular Hemoglobin 28.8 pg (28.0-33.3); Mean Corpuscular Volume 88.8 fL (83.0-100.0); Mean Platelet Volume 10.1 fL (9.4-12.4); Platelet Count 179 K/mcL (140-400); Red Cell Distribution Width 13.6 % (11.5-14.5); White Blood Count 6.4 K/mcL (4.3-11.1)
[2020-09-25 04:49] LABS: Hemoglobin 13.8 g/dL (12.9-16.9)
[2020-09-25 04:54] LABS: INR 3.2
[2020-09-25 05:08] LABS: BUN/Creatinine Ratio 15 (6-26); Blood Urea Nitrogen 16 mg/dL (8-23); Carbon Dioxide 20 mEq/L (23-29); Chloride 104 mEq/L (98-107); Glucose 275 mg/dL (70-105); Magnesium 1.8 mg/dL (1.6-2.6); Osmolality,Calculated 289 (280-300); Phosphorous 2.9 mg/dL (2.7-4.5); Potassium 4.2 mEq/L (3.5-5.1); Sodium 134 mEq/L (136-145); eGFR For African Americans > 60 (> 60); eGFR For Non-African Americans > 60 (> 60)
[2020-09-25] MEDS: Ondansetron 4 MG/2 ML VIAL IVP PRN ×2 (05:35→19:47)
[2020-09-25] MEDS: lisinopriL 20 MG TABLET PO SCH (08:05)
[2020-09-25] MEDS: amLODIPine 5 MG TABLET PO SCH (08:05)
[2020-09-25] MEDS: levoFLOXacin 750 MG TABLET PO SCH (08:05)
[2020-09-25] MEDS: Insulin LISPRO 300 UNITS/3 ML VIAL SQ SCH ×4 (08:06→19:18)
[2020-09-25] MEDS: Aspirin Enteric Coated 81 MG Tablet PO SCH (08:06)
[2020-09-25] MEDS: Warfarin perPT PO SCH (17:47)
[2020-09-25] MEDS: Insulin DETEMIR 100 UNIT/ML X5UNITS SQ SCH (19:27)
[2020-09-25] MEDS: Melatonin 3 MG TABLET PO PRN (19:47)
[2020-09-26 05:54] LABS: INR 3.1; Prothrombin Time 34.3 Seconds (9.4-12.1)
[2020-09-26 06:13] LABS: BUN/Creatinine Ratio 18 (6-26); Blood Urea Nitrogen 20 mg/dL (8-23); Calcium 8.2 mg/dL (8.6-10.3); Carbon Dioxide 21 mEq/L (23-29); Chloride 106 mEq/L (98-107); Glucose 198 mg/dL (70-105); Magnesium 1.8 mg/dL (1.6-2.6); Osmolality,Calculated 290 (280-300); Phosphorous 3.1 mg/dL (2.7-4.5); Potassium 3.8 mEq/L (3.5-5.1); Sodium 136 mEq/L (136-145); eGFR For African Americans > 60 (> 60); eGFR For Non-African Americans > 60 (> 60)
[2020-09-26] MEDS: Insulin DETEMIR 100 UNIT/ML X5UNITS SQ SCH ×2 (09:14→21:08)
[2020-09-26] MEDS: Insulin LISPRO 300 UNITS/3 ML VIAL SQ SCH ×4 (09:14→21:08)
[2020-09-26] MEDS: levoFLOXacin 750 MG TABLET PO SCH (09:15)
[2020-09-26] MEDS: lisinopriL 20 MG TABLET PO SCH (09:15)
[2020-09-26] MEDS: Aspirin Enteric Coated 81 MG Tablet PO SCH (09:15)
[2020-09-26] MEDS: amLODIPine 5 MG TABLET PO SCH (09:15)
[2020-09-26] MEDS: Warfarin perPT PO SCH (17:07)
[2020-09-26] MEDS: Melatonin 3 MG TABLET PO PRN (20:46)
[2020-09-27] MEDS ORDERED: Ipratropium/Albuterol Neb 3 ML IH PRN (03:40)
[2020-09-27 05:07] LABS: INR 2.4; Prothrombin Time 26.7 Seconds (9.4-12.1)
[2020-09-27 05:26] LABS: BUN/Creatinine Ratio 19 (6-26); Blood Urea Nitrogen 20 mg/dL (8-23); Calcium 8.1 mg/dL (8.6-10.3); Carbon Dioxide 22 mEq/L (23-29); Chloride 103 mEq/L (98-107); Glucose 222 mg/dL (70-105); Osmolality,Calculated 287 (280-300); Potassium 3.8 mEq/L (3.5-5.1); Sodium 134 mEq/L (136-145); eGFR For African Americans > 60 (> 60); eGFR For Non-African Americans > 60 (> 60)
[2020-09-27] MEDS: levoFLOXacin 750 MG TABLET PO SCH (08:13)
[2020-09-27] MEDS: amLODIPine 5 MG TABLET PO SCH (08:13)
[2020-09-27] MEDS: Aspirin Enteric Coated 81 MG Tablet PO SCH (08:13)
[2020-09-27] MEDS: lisinopriL 20 MG TABLET PO SCH (08:13)
[2020-09-27] MEDS: Insulin DETEMIR 100 UNIT/ML X5UNITS SQ SCH ×2 (08:15→21:37)
[2020-09-27] MEDS: Insulin LISPRO 300 UNITS/3 ML VIAL SQ SCH ×4 (08:18→21:37)
[2020-09-27] MEDS: Ondansetron 4 MG/2 ML VIAL IVP PRN (12:13)
[2020-09-27] MEDS ORDERED: *HR* Warfarin 2.5 MG TABLET PO ONE (18:00)
[2020-09-27] MEDS ORDERED: *HR* Warfarin 1 MG TABLET PO ONE (18:00)
[2020-09-27] MEDS: Warfarin perPT PO SCH (18:15)
[2020-09-28 04:54] LABS: Prothrombin Time 22.2 Seconds (9.4-12.1)
[2020-09-28 05:09] LABS: BUN/Creatinine Ratio 19 (6-26); Blood Urea Nitrogen 18 mg/dL (8-23); Calcium 8.4 mg/dL (8.6-10.3); Carbon Dioxide 20 mEq/L (23-29); Chloride 105 mEq/L (98-107); Glucose 243 mg/dL (70-105); Osmolality,Calculated 288 (280-300); Potassium 3.8 mEq/L (3.5-5.1); Sodium 134 mEq/L (136-145); eGFR For African Americans > 60 (> 60); eGFR For Non-African Americans > 60 (> 60)
[2020-09-28] MEDS: lisinopriL 20 MG TABLET PO SCH (07:31)
[2020-09-28] MEDS: Insulin LISPRO 300 UNITS/3 ML VIAL SQ SCH ×2 (07:31→12:41)
[2020-09-28] MEDS: amLODIPine 5 MG TABLET PO SCH (07:31)
[2020-09-28] MEDS: Aspirin Enteric Coated 81 MG Tablet PO SCH (07:31)
[2020-09-28] MEDS: Insulin DETEMIR 100 UNIT/ML X5UNITS SQ SCH (07:33)
[2020-09-28 09:08] VITALS: BP 148/73
[2020-09-28] MEDS ORDERED: *HR* Warfarin 2.5 MG TABLET PO ONE (18:00)
== END 2020-09-28 15:21 | DRG 177 ==
LOC: EMEROOARM 08:44 → 2NENU 08:44 → SUATTDRO 12:51 → 2NENU 14:05
PROVIDERS: ADMIT Internal Medicine; ATTEND Student in an Organized Health Care Education/Training Program

== ENCOUNTER 2021-08-02 23:27 | Observation (INO) ==
[2021-08-03] MEDS ORDERED: Morphine Sulfate 2 MG/ML SYRINGE IVP ONE ×2 (02:21→05:53)
[2021-08-03] MEDS ORDERED: ceFAZolin 2,000 MG in 0.9 % Sodium Chloride 100 ML IVPB ONE (05:54)
[2021-08-03] MEDS ORDERED: Tdap (Boostrix) Vaccine 0.5 ML SYRINGE IM ONE (06:23)
[2021-08-03 06:47] LABS: Hematocrit 47.3 % (37.5-50.1); Hemoglobin 15.3 g/dL (12.9-16.9); Mean Corpuscular HGB Conc 32.3 g/dL (31.6-35.5); Mean Corpuscular Hemoglobin 29.8 pg (28.0-33.3); Mean Platelet Volume 9.8 fL (9.4-12.4); Platelet Count 231 K/mcL (140-400); Red Blood Count 5.14 M/mcL (4.19-5.50); Red Cell Distribution Width 13.3 % (11.5-14.5); White Blood Count 11.5 K/mcL (4.3-11.1)
[2021-08-03 06:52] LABS: INR 3.1; Prothrombin Time 34.9 Seconds (9.4-12.1)
[2021-08-03] MEDS ORDERED: Ondansetron 4 MG/2 ML VIAL IVP ONE (07:01)
[2021-08-03 07:02] LABS: BUN/Creatinine Ratio 18 (6-26); Blood Urea Nitrogen 22 mg/dL (8-23); Calcium 8.8 mg/dL (8.6-10.3); Carbon Dioxide 23 mEq/L (23-29); Chloride 109 mEq/L (98-107); Glucose 135 mg/dL (70-105); Osmolality,Calculated 291 (280-300); Potassium 4.7 mEq/L (3.5-5.1); Sodium 138 mEq/L (136-145); eGFR For African Americans > 60 (> 60); eGFR For Non-African Americans > 60 (> 60)
[2021-08-03] MEDS ORDERED: Ondansetron 4 MG/2 ML VIAL IVP PRN ×5 (07:48→13:40)
[2021-08-03] MEDS ORDERED: Melatonin 3 MG TABLET PO PRN ×3 (07:48→13:40)
[2021-08-03] MEDS ORDERED: Acetaminophen 325 MG TABLET PO PRN ×2 (07:49→13:40)
[2021-08-03] MEDS ORDERED: Morphine Sulfate 2 MG/ML SYRINGE IVP PRN ×5 (07:49→13:40)
[2021-08-03] MEDS ORDERED: *HR* Dextrose 50 % in Water (Syg) 50 ML SYRINGE IVP PRN ×2 (08:06→13:40)
[2021-08-03] MEDS ORDERED: D5% in Water 1,000 ML IVC PRN ×2 (08:06→13:40)
[2021-08-03] MEDS ORDERED: Dextrose Gel 15 GM/37.5 ML TUBE PO PRN ×4 (08:06→13:40)
[2021-08-03] MEDS ORDERED: *HR* HYDROmorphone PF 0.5 MG/0.5 ML SYRINGE IVP PRN ×2 (08:34→13:40)
[2021-08-03] MEDS ORDERED: Acetaminophen IV 1,000 MG/100 ML BAG IVPB PRN ×2 (08:34→13:40)
[2021-08-03] MEDS ORDERED: Ringers Solution, Lactated 1,000 ML ONE (08:44)
[2021-08-03 09:12] LABS: INR 3.3
[2021-08-03] MEDS ORDERED: *HR* FentaNYL (PF) 100 MCG/2 ML VIAL ONE (09:13)
[2021-08-03] MEDS ORDERED: *HR* Propofol 200 MG/20 ML VIAL IVP ONE ×2 (09:14→10:40)
[2021-08-03] MEDS ORDERED: *HR* Midazolam HCl 2 MG/2 ML VIAL ONE (09:14)
[2021-08-03] MEDS ORDERED: *HR* Succinylcholine 200 MG/10 ML VIAL IVP ONE (09:20)
[2021-08-03] MEDS ORDERED: Ondansetron 4 MG/2 ML VIAL ONE ×2 (09:20→12:24)
[2021-08-03] MEDS ORDERED: Lidocaine -MPF 2% 2 ML VIAL ONE (09:20)
[2021-08-03] MEDS ORDERED: Lidocaine/EPI 1:100k 1% 20 ML VIAL ONE (09:51)
[2021-08-03] MEDS ORDERED: Clindamycin 900 MG/50 ML 900 MG/50 ML IV.SOLN IVPB ONE (09:54)
[2021-08-03] MEDS ORDERED: EPHEDrine 50 MG/ML VIAL ONE (10:31)
[2021-08-03] MEDS ORDERED: *HR* HYDROMORPHONE 2 MG/ML VIAL ONE (10:50)
[2021-08-03] MEDS ORDERED: Acetaminophen IV 1,000 MG/100 ML BAG IVPB ONE (11:10)
[2021-08-03] MEDS ORDERED: Fluticasone Propionate Nasal 50 MCG/SPRAY BOTTLE NS PRN (15:38)
[2021-08-03] MEDS ORDERED: INSULIN PUMP CARTRIDGE SQ SCH (15:45)
[2021-08-03] MEDS ORDERED: CeFAZolin Syr 3,000MG/30 ML 3,000 MG/30 ML SYRINGE IVPB ONE (16:00)
[2021-08-03] MEDS: Clindamycin 900 MG/50 ML 900 MG/50 ML IV.SOLN IVPB SCH (17:09)
[2021-08-03] MEDS ORDERED: Warfarin perPT PO PRN ×2 (18:00)
[2021-08-03] MEDS: Morphine Sulfate 2 MG/ML SYRINGE IVP PRN (20:56)
[2021-08-03] MEDS ORDERED: lisinopriL 20 MG TABLET PO SCH (21:00)
[2021-08-04] MEDS: Clindamycin 900 MG/50 ML 900 MG/50 ML IV.SOLN IVPB SCH (00:44)
[2021-08-04] MEDS: Morphine Sulfate 2 MG/ML SYRINGE IVP PRN ×3 (00:45→09:19)
[2021-08-04 03:06] LABS: Estimated Average Glucose 174 mg/dl; Hemoglobin A1C 7.7 %
[2021-08-04 06:54] VITALS: BP 141/70; PULSE 90; TEMP 98.8; O2SAT 91
[2021-08-04 07:29] LABS: Hematocrit 44.1 % (37.5-50.1); Mean Corpuscular HGB Conc 31.7 g/dL (31.6-35.5); Mean Corpuscular Hemoglobin 29.9 pg (28.0-33.3); Mean Platelet Volume 9.8 fL (9.4-12.4); Platelet Count 211 K/mcL (140-400); Red Blood Count 4.69 M/mcL (4.19-5.50); White Blood Count 13.4 K/mcL (4.3-11.1)
[2021-08-04 07:39] LABS: INR 3.7; Prothrombin Time 41.6 Seconds (9.4-12.1)
[2021-08-04 07:54] LABS: BUN/Creatinine Ratio 16 (6-26); Blood Urea Nitrogen 20 mg/dL (8-23); Calcium 8.5 mg/dL (8.6-10.3); Carbon Dioxide 23 mEq/L (23-29); Chloride 106 mEq/L (98-107); Glucose 103 mg/dL (70-105); Magnesium 2.1 mg/dL (1.6-2.6); Osmolality,Calculated 287 (280-300); Phosphorous 3.2 mg/dL (2.7-4.5); Potassium 4.6 mEq/L (3.5-5.1); Sodium 137 mEq/L (136-145); eGFR For African Americans > 60 (> 60); eGFR For Non-African Americans 58 (> 60)
[2021-08-04] MEDS ORDERED: amLODIPine 5 MG TABLET PO SCH (09:00)
[2021-08-04] MEDS ORDERED: Aspirin Enteric Coated 81 MG Tablet PO SCH (09:00)
== END 2021-08-04 11:29 | disposition home or self-care (01) ==
LOC: EMEROOARM 23:27 → 4WAOSI 23:27 → SUATTDRO 08-03 07:53 → 4WAOSI 08-03 08:35
PROVIDERS: ADMIT Internal Medicine; ATTEND Family Medicine